=== PATIENT | male | born 1945 | race Two or more races ===

== ENCOUNTER 2025-01-06 07:01 | Day surgery (SDC) | payer OTHER ==
[2025-01-06] VITALS (8 sets, daily range): BP systolic 98–125; BP diastolic 62–74; PULSE 49–61; RESP 12–17; TEMP 97.8; O2SAT 96–99
[~2025-01-06] VITALS: Ht 172.7 cm; Wt 84.4 kg
[~2025-01-06 07:01] MED LIST: AMIT25TA20 PO; ASPI-543 PO; DONETAB5 PO; IBAN1TAB2 PO; LOSA100T33 PO; PRIM50TA5 PO; RIZA10TA50 OR; SIMV10TA20 PO; TOPI25CA5 PO; [UNRECOGNIZED DRUG - CODE] PO
[2025-01-06] MEDS: IODIXANOL 320MG/ML 100ML BTL IV ONE (07:41)
[2025-01-06] MEDS: ANGIOMAX 250 MG VIAL IV ONE (07:56)
[2025-01-06] MEDS: HEPARIN SODIUM (PORCINE) 5000 UNITS/ML 1ML VIAL ONE (07:56)
[2025-01-06] MEDS: VERAPAMIL 2.5MG/ML INJ 2ML VIAL IV ONE (07:56)
[2025-01-06] MEDS: fentaNYL CITRATE 100 MCG/2 ML VL ONE (07:57)
[2025-01-06] MEDS: SODIUM CHL 0.9% 0 ML ONE (07:58)
[2025-01-06] MEDS: LIDOCAINE 2%HCL (LOCAL ANESTH.) INJ 20ML MDV ONE (07:58)
[2025-01-06] MEDS: MIDAZOLAM HCL 2MG/2ML 2ml VIAL (1mg/ml) ONE (07:58)
--- NOTE | 2025-01-06 08:32 | DVHOP2 ---
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 PREOPERATIVE DIAGNOSES: Abnormal stress test with CCS class 3 angina, preop eval POSTOP DIAGNOSIS: mild cad DESCRIPTION OF PROCEDURE: The patient or appropriate family signed informed consent understanding the risks, benefits and alternatives of the procedure, they wished to proceed. The patient was brought to the cardiac prestressed concrete laborer in n.p.o. state. The patient was prepped in a sterile fashion. Sedation was used per cardiac cath protocol. I administered 2 mL of 2% lidocaine to the right wrist. With an antegrade front wall puncture. I cannulated the right radial artery and placed a 6-[place] Glidesheath slender. Next, an intra-arterial spasmolytic was administered. Next, a - 6French [place]ton catheter and were used for coronary angiogram and LVEDP measurement and pressure pullback. At the completion of procedure, all guides and wires were removed, and there were no immediate complications. FINDINGS: RCA: Moderate large dominant vessel off the right sinus of Valsalva, there is no severe flow limiting stenosis. LEFT MAIN: Moderate size left main, it bifurcates into LAD and circumflex. no stenosis. moderate calcification CIRCUMFLEX: Moderate caliber vessel coming off the left main with no flow limiting stenosis. 30% tubular OM stenosis that is long and diffuse LAD: LAD is a moderate caliber vessel coming of the left main. no stenosis. mild diffuse luminal irregularities. D1 is large and has a 30% stenosis LVEDP of 14 mmhg CONCLUSIONS: 1. mild CAD PLAN: Aggressive risk factor modification and medical management for the patient. patient intermediate risk for spine surgery DESEAN ALDANA MD Jan 06, 2025 08:31
--- NOTE | 2025-01-06 14:53 | ECG ---
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
== END 2025-01-06 10:35 | disposition home or self-care (01) ==
LOC: CATH 07:01
PROVIDERS: ATTEND Internal Medicine
DX: R94.39 Abnormal result of other cardiovascular function study (principal); I25.118 Atherosclerotic heart disease of native coronary artery with other forms of angina pectoris; I25.84 Coronary atherosclerosis due to calcified coronary lesion; Z79.899 Other long term (current) drug therapy; Z87.891 Personal history of nicotine dependence
CPT/HCPCS: 93005; 93458; C1769; C1894; J1644; J2250; J3010; J7030; Q9967; 99152